=== PATIENT | female | born 1980 | race Caucasian/White ===

== ENCOUNTER 2024-05-26 07:19 | Day surgery (SDC) | payer BC ==
[2024-05-19 12:52] LABS: Absolute Eosinophils 0.1 K/uL (0-0.5); Absolute Monocytes 0.5 K/uL (0.1-1.3); Absolute Neutrophil 4.5 K/uL (1.8-8.0); Basophils % 0.4 % (0-1.3); Eosinophils % 1.5 % (0-4.4); Hematocrit 44.2 % (36.0-45.0); Hemoglobin 15.3 g/dL (12.0-15.0); Lymphocytes % 28.5 % (15.3-44.8); MCH 30.6 pg (27.0-35.0); MCHC 34.5 g/dL (32.0-36.0); MCV 88.6 fL (80-100); MPV 8.9 fL (7.6-11.3); Monocytes % 6.5 % (3.3-12.3); Neutrophils % 63.1 % (41.7-73.7); Nucleated Red Blood Cells % 0.1 % (0-0); Platelets 244 thou/uL (152-406); RBC Red Blood Cell Count 4.99 M/uL (3.86-4.86)
[2024-05-19 13:12] LABS: Specific Gravity 1.006 (1.005-1.030); Sqamous Epithelial <5 /HPF (None Seen); Urine Bacteria <20 /HPF (<20); Urine Bilirubin NEGATIVE (Negative); Urine Blood Trace (Negative); Urine Clarity Turbid (Clear); Urine Color Colorless (Yellow); Urine Culture Reflex Order NOT NEEDED; Urine Glucose NEGATIVE (Negative); Urine Ketones NEGATIVE (Negative); Urine Microscopic Reflex YN ORDER UMIC; Urine Nitrite NEGATIVE (Negative); Urine Protein NEGATIVE (Negative); Urine RBC <5 /HPF (None Seen); Urine Urobilinogen Normal (Normal); Urine WBC <5 /HPF (<5); Urine pH 5.5 (5.0-7.0)
[2024-05-26] MEDS ORDERED: SCOPOLAMINE HYDROBROMIDE PATCH TD ONE (07:56)
[2024-05-26] MEDS: Ringers Lactate 1,000 ML IV ONE ×3 (08:10→12:22)
[2024-05-26] MEDS ORDERED: ROCURONIUM 50 MG/5 ML VIAL IV ONE (08:59)
[2024-05-26] MEDS ORDERED: FENTANYL CITR 100 MCG/2 ML ONE (08:59)
[2024-05-26] MEDS ORDERED: ONDANSETRON 4 MG/2 ML VIAL ONE (08:59)
[2024-05-26] MEDS ORDERED: LIDOCAINE 2% MPF 5 ML VIAL ONE (08:59)
[2024-05-26] MEDS ORDERED: MIDAZOLAM HCL 2 MG/2 ML INJ ONE (08:59)
[2024-05-26] MEDS ORDERED: propofoL 200 MG/20 ML VIAL IV ONE (08:59)
[2024-05-26] MEDS ORDERED: KETOROLAC 30 MG/ML INJ ONE (08:59)
[2024-05-26] MEDS ORDERED: dexAMETHasone 10 MG/ML VIAL ONE (08:59)
[2024-05-26] MEDS: CEFAZOLIN SODIUM 1 GM/VIAL ONE (09:25)
[2024-05-26] MEDS: CEFAZOLIN SODIUM 2 GM/VIAL ONE (09:25)
[2024-05-26] MEDS ORDERED: LANO/MINERAL OIL/PETRO 3.5 GM ONE (09:54)
[2024-05-26] MEDS ORDERED: NS 0.9% VIAL 10 ML ONE (10:13)
[2024-05-26] MEDS ORDERED: VECURONIUM 10 MG/VIAL IV ONE (10:13)
[2024-05-26] MEDS: BUPIVACAINE 0.25% PF 30 ML VIAL ONE (10:15)
[2024-05-26] MEDS ORDERED: MEPERIDINE HCL 25 MG/ML SYR ONE (11:43)
[2024-05-26] MEDS ORDERED: NEOSTIGMINE 1 MG/ML -10 ML VIAL ONE (12:07)
[2024-05-26] MEDS ORDERED: GLYCOPYRROLATE 0.2 MG/ML SYR ONE (12:07)
[2024-05-26] MEDS ORDERED: Mastisol Adhesive Liq ONE (12:09)
[2024-05-26] MEDS ORDERED: HYDROCODONE/APAP 5/325 MG TAB PO PRN (12:43)
[2024-05-26] MEDS ORDERED: PROMETHAZINE INJ 25 MG/ML AMP IV PRN (12:43)
[2024-05-26] MEDS ORDERED: PROMETHAZINE 25 MG TABLET PO PRN (12:43)
[2024-05-26] MEDS ORDERED: MEPERIDINE HCL 25 MG/ML SYR IM PRN (12:43)
--- NOTE | 2024-05-26 12:53 | P.BOP ---
Preoperative diagnosis: Pelvic pain, Deep dyspareunia, ASCUS pap, h/o endometriosis Postoperative diagnosis: same, Endometriosis bilateral lateral love, Rt anterior CDS Primary procedure: TLH Endometriosis excision Zipper Setter Chainstitch: Courtney Pederson Estimated blood loss: 25 Specimen: uterus endo right lateral wall, Ant CDS Findings: endo R lat wall,L ant CDS;scar from prior endo rx L lat wall, R ant CDS Anesthesia: General Complications: None Transferred to: Recovery Room Condition: Good
[2024-05-26] MEDS: HYDROMORPHONE HCL 1 MG/ML INJ ONE (13:10)
[2024-05-26] MEDS: ONDANSETRON 4 MG/2 ML VIAL ONE (13:20)
[2024-05-26 15:46] VITALS: BP 108/41; TEMP 97.5
[2024-05-26 15:47] VITALS: O2SAT 99
--- NOTE | 2024-05-26 20:41 | OP ---
Date of Procedure: 05/26/2024 Surgeon: Nadia Roque MD [employer] Crewmember: Courtney Aguirre. Preoperative Diagnoses: Pelvic pain, deep dyspareunia, history of endometriosis, ASCUS Pap, and hist ory of endometriosis. Postoperative Diagnoses: Pelvic pain, deep dyspareunia, history of endometriosis, ASCUS Pap, and his tory of endometriosis, and endometriosis of the bilateral lateral love and right anterior cul-de-sac . Primary Procedures: Total laparoscopic hysterectomy, endometriosis excision. Estimated Blood Loss: 25. Specimens: Uterus, endometriosis from the right lateral wall and left anterior cul-de-sac. Fulgurat ion on the left lateral wall. Anesthesia: General endotracheal. Complications: No complications. Drains: No drains. Patient's Condition: Stable. Findings: Right lateral wall with endometriosis all the way from the remnants of the mesosalpinx all the way down to the lower portion of the pelvis underneath the uterine vessels and this was excised, then distal left wall with 2 possible implants cauterized right anterior cul-de-sac. There is also an endometriotic lesion on the uterine serosa and slightly in the lower portion of the posterior wall of the uterus closer to the uterosacral ligament. This is also closed to the area of excision from last time. Indications: The patient is a 44-year-old status post bilateral salpingectomy and endometriosis exci lizbeth. Her pain has been recurrent and deep dyspareunia has not completely resolved and has become saranya thersome. Given her prior history of endometriosis, we discussed that this could be recurrent endo a nd that I recommend surgical treatment. The uterus was slightly enlarged, likely adenomyotic. So, I encouraged the patient to consider a hysterectomy definitely to address the deep dyspareunia, the ch ances are higher with a complete removal of this and she understood. Ovarian preservation was discus sed, and she was consented. After she was re-consented in the preoperative area, she was then taken back to the OR. As the patient has rheumatoid arthritis, she has been managed by her fermentologist after having cons idered management of all her biologic as well as her antimetabolic drugs. That regimen was discussed and given to the patient including holding hydroxychloroquine, meloxicam, and Celebrex prior to the surgery and then resume if postoperative no bleeding complications occurred, and then her injections biweekly to hold the next dose and just skip the dose prior to the surgery as well and galina t until there is a good window of time for healing and delayed healing is a risk, and she understood this, and she can restart after having discussed this if her symptoms are recurrent and significant. The patient also has a history of irritative bladder symptoms and urgency. Description Of Procedure: After she was placed in a supine fashion on the operating table, general a nesthesia was given. She was placed in a dorsal lithotomy position using Dayron stirrups. Abdomen wa s prepped with ChloraPrep; vulva, vagina, and perineum with Betadine and draped in a sterile fashion. She was grounded. Arms were tucked and positioning was checked. SCDs were started. Time-out was done and then the procedure started. She got 3 g of Ancef preop. Speculum placed to expose the cervix. Anterior lip was grasped with single-tooth tenaculum, slightly retroflexed uterus, so she was dilated to 16-Irish and a uterine manipulator with a large cup was i ntroduced and fixed in place. Blood was placed to drain the bladder and attached to gravity drainage bag, and this area was draped. A 1 cm infraumbilical incision was made with a scalpel using the open laparoscopy technique. Fascia was incised, tagged with 0 Vicryl sutures. Peritoneum entered sharply. Mk introduced and after adequate insufflation, site of entry was checked and was unremarkable. Upper abdomen without any end ometriotic lesions. A 10/12 suprapubic port and two 5 right and left lower quadrant ports were place d under direct vision. The patient was placed in significant Trendelenburg. The bowel was retracted with the help of a 3-0 Monocryl on the epiploic of her sigmoid colon. That was retracted using a Sara mayer-Dionisio needle through the left upper quadrant and tagged with a hemostat. After evaluation of her anatomy including the ureters all the way from the pelvic brim to the ureteri c tunnel, the bladder, and the bowel, procedure was started. Endometriosis excision: The right lateral wall lesion was circumferentially opened and excised, and then there was an endometriotic lesion lateral to the left uterosacral here. This was old excision; and therefore, there was slight scarring and as the ureter was dissected laterally, uterine vessels s uperiorly, and then the scar was excised along with the lesion that was left along the serosa of the uterus. There was a bladder endometriotic lesion as well and this was on the peritoneum, on the left bladder pillar and this was excised. The right bladder pillar excision of endometriosis was done in the past , but the scar here was also excised to make sure that the completion was done with excision. The round ligament was dissected first. Hysterectomy: The round ligament was dissected first on the left side, opened up on either sides. T hen, mesosalpinx was carefully cauterized and cut along with the utero-ovarian ligament with the Liga Sure. Then, once the round ligament was taken down, anterior peritoneum opened up all the way to the left paravesical space. Then, once the vessels were identified, the bladder pillar was carefully di ssected, cauterized here just to detach it from the anterior wall, so I could perform a colpotomy. O nce the vessels were both taken down, cardinal ligaments were taken down with the help of bipolar and monopolar and whenever to the opposite side to perform a similar dissection taking down the round li gament, then the utero-ovarian ligament and the entire mesosalpinx, salpingeal vasculature and tissue . The excision was performed on the right anterior broad ligament. Then, posterior broad ligament w as taken down all the way to the uterosacral. Vessels were skeletonized and they were cauterized and cut. Once I opened a good window, cardinal ligaments were also taken down with the help of bipolar and monopolar, then circumferential colpotomy with a monopolar hook blade. Specimen detached and re trieved through the vagina. The vaginal cuff was then irrigated and suctioned and closed with the help of simple 0 PDS sutures at both angles and 3 [id number] in the middle. Care was taken to include the connective tissue o f the anterior and posterior vaginal love to support the cuff as well as reconstruct without any api margret defects. Good peristalsis of the ureters was noted on both sides without any problems. After all pedicles wer e checked, thorough irrigation and suction were performed. There was no necessity for ovariopexy on either sides. Then, the procedure was concluded. The bowel was released. All areas were checked fo r hemostasis. All trocars were removed under direct vision. Fascia and skin injected with 0.25% bup ivacaine at incision time and later at the end skin was injected. After gas was desufflated and the patient was placed in a supine position, the Mk was removed. Fascia was closed with the tagged 0 Vicryl sutures tied to each other and the simple 0 Vicryl suture at the suprapubic fascial site. Al l skin incisions were closed with interrupted 4-0 Vicryl. Blood and the vaginal bulb were removed. Instrument, needle, and sponge counts x3 were correct at the end of the case. I discussed the result s with her . She will follow up in 1 week and 4 to 6 weeks postop. Care will be taken for cu ff healing and restrictions have been reviewed carefully. Restarting of medications according to her and commensurate with her healing. AVTAR/ANKIT Voice ID: [id number] Report ID: [id number]
[2024-05-26] MEDS ORDERED: HYDROXYCHLOROQUINE 200MG TAB PO SCH (21:00)
[2024-05-27] MEDS ORDERED: ESCITALOPRAM 20 MG TAB PO SCH (09:00)
[2024-05-27] MEDS ORDERED: PANTOPRAZOLE 40MG TABLET PO SCH (09:00)
[2024-05-27] MEDS ORDERED: FAMOTIDINE 20 MG TAB PO SCH (09:00)
== END 2024-05-26 14:30 | disposition home or self-care (01) ==
LOC: OR 07:19
PROVIDERS: ATTEND Obstetrics & Gynecology
PROC: 0UBF4ZZ Excision of Cul-de-sac, Percutaneous Endoscopic Approach (ICD-10-PCS; 2024-05-26)
PROC: 0DBW4ZZ Excision of Peritoneum, Percutaneous Endoscopic Approach (ICD-10-PCS; 2024-05-26)
PROC: 0UT94ZZ Resection of Uterus, Percutaneous Endoscopic Approach (ICD-10-PCS; principal; 2024-05-26 10:00)
DX: R87.610 Atypical squamous cells of undetermined significance on cytologic smear of cervix (ASC-US) (principal); R10.2 Pelvic and perineal pain; N94.6 Dysmenorrhea, unspecified; N94.12 Deep dyspareunia; N80.C19 Endometriosis of the anterior abdominal wall, unspecified depth; N80.319 Endometriosis of the anterior cul-de-sac, unspecified depth
CPT/HCPCS: 58570; 58662; 85025; 81001; 36415; 86900; 86850; 81025; 86901; 88305; A4216; J2704; J2710; J2003; J2250; J3010; J1100; J2175; J1171; J2405 ×2; J7120 ×3; J0690; A4314